=== PATIENT | female | born 1990 | race Hispanic/Latino ===

== ENCOUNTER 2017-03-24 01:12 | Emergency (ER) | payer OTHER ==
[~2017-03-24] VITALS: Ht 152.4 cm; Wt 74.0 kg
[2017-03-24] MEDS ORDERED: BIRTH CONTROL (01:19)
[2017-03-24] MEDS ORDERED: LEXA1TAB PO (01:19)
[2017-03-24] MEDS ORDERED: diphenhydrAMINE INJ 50MG/ML VIAL (J1200) IV STA (01:39)
[2017-03-24] MEDS ORDERED: HALOPERIDOL 5 MG/ML VIAL (J1630) IV STA (01:39)
[2017-03-24] MEDS ORDERED: dexameTHASONE 20 MG/5 ML VIAL (J1100) IV ONE (01:45)
[2017-03-24] MEDS ORDERED: AUGMENTIN 875 MG TAB PO ONE (02:15)
--- NOTE | 2017-03-24 03:27 | REP ---
Clinical: Headache . Comparison: None . Findings: The ventricles, sulci, and cisterns are normal in position and appearance. Galvez-white differentiation is maintained. No acute intracranial hemorrhage, mass/mass effect, pathology or trauma/injury. No evidence for acute infarction. No extra-axial fluid collection. Calvarium is intact. Sinuses demonstrate mucosal thickening and fluid levels in the visualized bilateral maxillary sinuses consistent with sinusitis. Impression: Moderate sinus disease. No evidence for acute intracranial pathology or trauma/injury. Signed by Pieter Patel MD 03/24/2017 03:19 A
[2017-03-24] MEDS ORDERED: PRED20TA PO (03:28)
[2017-03-24] MEDS ORDERED: AUGM500T34 PO (03:29)
[2017-03-24 03:36] VITALS: BP 119/74
== END 2017-03-24 03:46 | disposition home or self-care (01) ==
LOC: M ED 03:07
DX: J01.90 Acute sinusitis, unspecified (principal); G43.909 Migraine, unspecified, not intractable, without status migrainosus; F32.9 Major depressive disorder, single episode, unspecified; Z79.899 Other long term (current) drug therapy; Z91.09 Other allergy status, other than to drugs and biological substances
CPT/HCPCS: 70450; 96374; 96375; 99283; J1100; J1200; J1630